=== PATIENT | male | born 1955 | race Caucasian/White ===

== ENCOUNTER 2018-01-14 05:23 | Inpatient (IN) | payer OTHER ==
[2018-01-08 12:23] LABS: ADD MAN DIFF? NO
[2018-01-08 12:33] LABS: WHITE BLOOD COUNT 8.5 10^3/ul (4.8-10.8)
[2018-01-08 12:33] LABS: BASOPHIL # 0.1 10^3/ul (0.0-0.1); BASOPHILS % 0.8 % (0.0-2.0); EOSINOPHILS # 0.1 10^3/ul (0.0-0.5); EOSINOPHILS % 0.9 % (0.0-7.0); HEMOGLOBIN 17.2 g/dl (14.0-18.0); LYMPHOCYTES # 2.6 10^3/ul (0.8-2.9); LYMPHOCYTES % 30.6 % (15.0-51.0); MEAN CORPUSCULAR HEMOGLOBIN 30.9 pg (29.0-33.0); MEAN CORPUSCULAR HGB CONC 35.1 g/dl (32.0-37.0); MEAN PLATELET VOLUME 10.4 fl (7.4-10.4); MONOCYTE # 0.5 10^3/ul (0.3-0.9); MONOCYTES % 5.8 % (0.0-11.0); NEUTROPHIL # 5.3 10^3/ul (1.6-7.5); NEUTROPHILS % 61.8 % (39.0-77.0); PLATELET COUNT 260 10^3/UL (140-415); RED BLOOD COUNT 5.57 10^6/ul (4.70-6.10); RED CELL DISTRIBUTION WIDTH 12.3 % (11.5-14.5)
[2018-01-08 12:54] LABS: INR 0.93; PARTIAL THROMBOPLASTIN TIME 33.3 Sec (25.0-35.0); PROTIME 12.6 Sec (11.9-14.9)
[2018-01-08 12:59] LABS: ALANINE AMINOTRANSFERASE 34 IU/L (13-69); ALBUMIN 5.2 g/dl (3.3-4.9); ALBUMIN/GLOBULIN RATIO 1.44; ALKALINE PHOSPHATASE 78 IU/L (42-121); ANION GAP 20 (8-16); ASPARTATE AMINO TRANSFERASE 39 IU/L (15-46); BILIRUBIN,INDIRECT 1.2 mg/dl (0-1.1); BILIRUBIN,TOTAL 1.2 mg/dl (0.2-1.3); CARBON DIOXIDE 22 mmol/L (21-31); CHLORIDE 101 mmol/L (97-110); GLUCOSE 165 mg/dl (70-220); TOTAL PROTEIN 8.8 g/dl (6.1-8.1)
[2018-01-08 13:00] LABS: BLOOD UREA NITROGEN 12 mg/dl (7-20); CALCIUM 10.4 mg/dl (8.4-10.2); CREATININE 0.66 mg/dl (0.61-1.24); POTASSIUM 4.3 mmol/L (3.5-5.1); SODIUM 139 mmol/L (135-144)
[2018-01-08 13:44] LABS: ERYTHROCYTE SEDIMENTATION RATE 5 mm/Hr (0-20)
[2018-01-14] MEDS ORDERED: LACTATED RINGER'S 1,000 ML IV* ×2 (06:30)
[2018-01-14] MEDS ORDERED: THROMBIN 5000 UNIT VIAL (06:50)
[2018-01-14] MEDS ORDERED: GELATIN SIZE 100 SPONGE (06:50)
[2018-01-14] MEDS: CEFAZOLIN 2 GM/50 ML (PMX) 50 ML IVPB (06:55)
[2018-01-14] MEDS ORDERED: CEFAZOLIN 1 GM INJ (07:00)
[2018-01-14] MEDS ORDERED: MIDAZOLAM 1 MG/ML 2 ML INJ (07:02)
[2018-01-14] MEDS ORDERED: LIDOCAINE 2% (SDV) 5 ML INJ (07:21)
[2018-01-14] MEDS ORDERED: PROPOFOL 20 ML (07:21)
[2018-01-14] MEDS ORDERED: ONDANSETRON 4 MG INJ (07:21)
[2018-01-14] MEDS ORDERED: FAMOTIDINE 20 MG INJ (07:21)
[2018-01-14] MEDS ORDERED: SUCCINYLCHOLINE CHLORIDE 100 MG/5 ML SYG IV (07:21)
[2018-01-14] MEDS ORDERED: ROCURONIUM 50 MG INJ ×2 (07:21→07:26)
[2018-01-14] MEDS: POLYMYXIN/BACITRACIN 1L IRRIG (07:49)
[2018-01-14] MEDS: BUPIVACAINE 0.25% (MPF) 30 ML INJ (07:49)
[2018-01-14] MEDS ORDERED: hydrALAzine 20 MG INJ IV ×2 (08:00)
[2018-01-14] MEDS ORDERED: FENTAnyl 50 MCG/ML VIAL IV ×3 (08:00)
[2018-01-14] MEDS ORDERED: LABETALOL HCL 20MG INJ IV ×2 (08:00)
[2018-01-14] MEDS ORDERED: MEPERIDINE 25 MG INJ IV (08:00)
[2018-01-14] MEDS ORDERED: PROCHLORPERAZINE 10 MG INJ IV (08:00)
[2018-01-14] MEDS ORDERED: HYDROmorphONE (0.2 MG/ML) 10ML SYG IV ×2 (08:00)
[2018-01-14] MEDS ORDERED: ACETAMINOPHEN 1000MG/100ML IV 100 ML (08:14)
[2018-01-14] MEDS ORDERED: SUGAMMADEX SODIUM 200 MG/2 ML VIAL IV ×3 (08:16→08:38)
[2018-01-14] MEDS ORDERED: DEXTROSE 50% 50 ML SYRINGE IV ×4 (08:30→16:00)
[2018-01-14] MEDS ORDERED: GLUCOSE GEL 15 GRAM TUBE PO ×4 (08:30→16:00)
[2018-01-14] MEDS ORDERED: GLUCAGON 1 MG INJ IM ×2 (08:30→16:00)
[2018-01-14] MEDS ORDERED: GLUCOSE GEL 15 GRAM TUBE BUCCAL ×2 (08:30→16:00)
[2018-01-14] MEDS ORDERED: DEXTROSE 5%-0.45% NACL 1,000 ML IV (08:58)
[2018-01-14] MEDS ORDERED: ACETAMINOPHEN 325 MG TAB PO (09:00)
[2018-01-14] MEDS ORDERED: PROCHLORPERAZINE 10 MG TAB PO (09:00)
[2018-01-14] MEDS: INSULIN ASPART [NOVOLOG] 3 ML PEN SC ×3 (09:00→21:00)
[2018-01-14] MEDS ORDERED: TRIMETHOBENZAMIDE 100 MG/ML VIAL IM (09:00)
[2018-01-14] MEDS ORDERED: AL HYDROX/MG HYDROX/SIMETH 30 ML CUP PO (09:00)
[2018-01-14] MEDS ORDERED: NALOXONE (0.4 MG/ML) INJ IV (09:00)
[2018-01-14] MEDS ORDERED: DIPHENHYDRAMINE 50 MG CAP PO (09:00)
[2018-01-14] MEDS ORDERED: NACL 0.9% 3 ML SYG IV (09:00)
[2018-01-14] MEDS ORDERED: BETHANECHOL 25 MG TAB PO (09:00)
[2018-01-14] MEDS ORDERED: ONDANSETRON 4 MG INJ IV (09:00)
[2018-01-14] MEDS ORDERED: ZOLPIDEM 5 MG TAB PO (09:00)
[2018-01-14] MEDS ORDERED: DIAZEPAM 5 MG/ML SYG IM (09:00)
[2018-01-14] MEDS: HYDROmorphONE (0.2 MG/ML) 10ML SYG IV ×3 (09:05→09:22)
[2018-01-14] MEDS: ONDANSETRON 4 MG INJ IV (09:06)
[2018-01-14] MEDS: DIPHENHYDRAMINE 50 MG INJ IV (09:22)
[2018-01-14] MEDS: HYDROmorphONE 0.2 MG/ML PCA IV ×2 (09:30→18:23)
[2018-01-14] MEDS: LACTATED RINGER'S 1,000 ML IV (13:10)
[2018-01-14] MEDS: CEFAZOLIN 1 GM/50 ML (PMX) 50 ML IVPB ×2 (13:10→18:04)
[2018-01-14] MEDS: CEPASTAT LOZENGE MT (13:28)
[2018-01-14] MEDS ORDERED: glipiZIDE 10 MG TAB PO (17:25)
[2018-01-14] MEDS: metFORMIN 500 MG TAB PO (18:04)
[2018-01-14] MEDS: ATORVASTATIN 20 MG TAB PO (21:13)
[2018-01-14] MEDS: RANITIDINE 150 MG TAB PO (21:13)
[2018-01-15] MEDS: CEFAZOLIN 1 GM/50 ML (PMX) 50 ML IVPB ×2 (00:02→05:08)
[2018-01-15] MEDS: LACTATED RINGER'S 1,000 ML IV (00:02)
[2018-01-15] MEDS: DIAZEPAM 5 MG TAB PO ×2 (00:05→05:07)
[2018-01-15] MEDS: HYDROmorphONE 0.2 MG/ML PCA IV (05:02)
[2018-01-15 05:38] LABS: HEMATOCRIT 41.1 % (42.0-52.0); HEMOGLOBIN 14.3 g/dl (14.0-18.0)
[2018-01-15 06:10] LABS: ANION GAP 12 (8-16)
[2018-01-15 06:15] LABS: BLOOD UREA NITROGEN 8 mg/dl (7-20); CARBON DIOXIDE 30 mmol/L (21-31); CHLORIDE 101 mmol/L (97-110); CREATININE 0.65 mg/dl (0.61-1.24); GLUCOSE 102 mg/dl (70-220); POTASSIUM 4.3 mmol/L (3.5-5.1); SODIUM 139 mmol/L (135-144)
[2018-01-15] MEDS: CEPASTAT LOZENGE MT (06:56)
[2018-01-15] MEDS: HYDROCODONE/APAP (5/325) TAB PO ×2 (06:56→08:47)
[2018-01-15] MEDS: INSULIN ASPART [NOVOLOG] 3 ML PEN SC ×2 (07:50→11:40)
[2018-01-15] MEDS ORDERED: BETHANECHOL 25 MG TAB PO (08:00)
[2018-01-15] MEDS: DOCUSATE SODIUM 100 MG CAP PO (08:48)
[2018-01-15] MEDS: FERROUS SULFATE (EC) 325 MG TAB PO (08:48)
[2018-01-15] MEDS: RANITIDINE 150 MG TAB PO (08:48)
[2018-01-15] MEDS: metFORMIN 500 MG TAB PO (08:48)
[2018-01-15] MEDS: ENALAPRIL 10 MG TAB PO (08:49)
[2018-01-15] MEDS ORDERED: HYDROCODONE/APAP (5/325) TAB NGT (11:30)
[2018-01-15] MEDS: HYDROCODONE/APAP (10/325) TAB PO (11:51)
[2018-01-15 13:09] LABS: ADD UMIC NO; UR ASCORBIC ACID NEGATIVE (NEGATIVE); UR BILIRUBIN (Dip) NEGATIVE (NEGATIVE); UR BLOOD (Dip) NEGATIVE (NEGATIVE); UR CLARITY CLEAR (CLEAR); UR COLOR COLORLESS (YELLOW); UR GLUCOSE (Dip) 3+ mg/dL (NEGATIVE); UR KETONES (Dip) 1+ mg/dL (NEGATIVE); UR LEUKOCYTE ESTERASE (Dip) NEGATIVE Leu/ul (NEGATIVE); UR NITRITE (Dip) NEGATIVE (NEGATIVE); UR SPECIFIC GRAVITY (Dip) 1.003 (1.003-1.030); UR TOTAL PROTEIN (Dip) NEGATIVE (NEGATIVE); UR UROBILINOGEN (Dip) NEGATIVE (NEGATIVE)
[2018-01-15] MEDS ORDERED: ASCORBIC ACID 500 MG TAB PO (21:00)
== END 2018-01-15 14:47 | disposition home or self-care (01) | DRG 520 ==
LOC: REC 05:23 → MS1 11:45
PROC: 0SB20ZZ Excision of Lumbar Vertebral Disc, Open Approach (ICD-10-PCS; principal; 2018-01-14 06:59)
DX: M51.26 Other intervertebral disc displacement, lumbar region (principal); I10 Essential (primary) hypertension; E78.5 Hyperlipidemia, unspecified; E11.9 Type 2 diabetes mellitus without complications; M10.9 Gout, unspecified
CPT/HCPCS: 72020; 80048; 80053; 81003; 82962; 85014; 85018; 85025; 85610; 85651; 85730; 86850; 86900; 86901; 86920; 97116; 97163; 97530